=== PATIENT | female | born 1945 | race Caucasian/White ===

== ENCOUNTER 2016-07-09 11:57 | Inpatient (IN) | payer OTHER ==
[~2016-07-09] VITALS: Ht 157.5 cm; Wt 61.2 kg
[2016-07-09 13:15] LABS: UA SPECIFIC GRAVITY <=1.005 (1.005-1.035); microscopic required? YES; urine erythrocyte TRACE (NEGATIVE)
[2016-07-09 13:18] LABS: BASOPHIL % 0.7 % (0-2); PLATELET COUNT 387 x10^3mcL (130-400); RED CELL DISTRIBUTION WIDTH 13.6 % (11.5-14.5)
[2016-07-09 13:28] LABS: AMPHETAMINE QUAL UR NONE DETECTED (NEG <=1000)
[2016-07-09 13:34] LABS: ALKALINE PHOSPHATASE 84 U/L (46-116); ALT/SGPT 16 U/L (14-59); AST/SGOT 14 U/L (15-37); BILIRUBIN TOTAL 0.35 mg/dL (0.20-1.00); CALCIUM 9.3 mg/dL (8.5-10.1); CARBON DIOXIDE 29.1 mmol/L (21-32); CHLORIDE SERUM 91 mmol/L (98-107); CREATININE SERUM 1.5 mg/dL (0.6-1.0); GLUCOSE SERUM 105 mg/dL (74-106); POTASSIUM SERUM 4.8 mmol/L (3.5-5.1); SODIUM SERUM 125 mmol/L (136-145)
[2016-07-09 13:37] LABS: ALBUMIN 3.3 g/dL (3.4-5.0)
[2016-07-09 14:49] LABS: FREE T4 1.24 ng/dL (0.76-1.46); FREE THYROXINE INDEX 3.5 ug/dL (1.4-4.5); T3 TOTAL 1.18 ng/mL; T4(THYROXINE) 9.9 ug/dL (4.7-13.3)
[2016-07-09] MEDS ORDERED: SIMVASTATIN20 M1 PO (14:58)
[2016-07-09] MEDS ORDERED: ESCITALOPRAM10 M1 PO (14:58)
[2016-07-09] MEDS ORDERED: BUSPIRONE HCL5 MG PO (14:58)
[2016-07-09] MEDS ORDERED: CLONAZEPAM0.5 MG PO (14:58)
[2016-07-09] MEDS ORDERED: OLANZAPINE5 M2 PO (14:59)
[2016-07-09] MEDS ORDERED: BENAZEPRIL HYDR20 M1 PO (14:59)
[2016-07-09] MEDS ORDERED: CYMBALTA30 M1 PO (14:59)
[2016-07-09] MEDS ORDERED: HCTZ/TRIAMTEREN1 CA1 PO (14:59)
[2016-07-09] MEDS ORDERED: ASPIR 8181 MG PO (15:00)
[2016-07-09 15:23] VITALS: BP 136/56
[2016-07-09 15:25] LABS: CHOLESTEROL/HDL RATIO 1.8
[2016-07-09 16:25] VITALS: BP 136/56
[2016-07-09 19:02] LABS: CALCIUM 8.7 mg/dL (8.5-10.1); CHLORIDE SERUM 93 mmol/L (98-107); CREATININE SERUM 1.4 mg/dL (0.6-1.0); GLUCOSE SERUM 127 mg/dL (74-106); POTASSIUM SERUM 4.4 mmol/L (3.5-5.1); SODIUM SERUM 125 mmol/L (136-145)
[2016-07-09 19:22] VITALS: BP 140/75
[2016-07-09 23:27] VITALS: BP 99/45
[2016-07-10 03:20] VITALS: BP 88/56
[2016-07-10 07:29] LABS: BASOPHIL % 0.6 % (0-2); PLATELET COUNT 362 x10^3mcL (130-400); RED CELL DISTRIBUTION WIDTH 13.1 % (11.5-14.5)
[2016-07-10 07:45] VITALS: BP 130/70
[2016-07-10 07:59] LABS: CARBON DIOXIDE 26.7 mmol/L (21-32); CHLORIDE SERUM 98 mmol/L (98-107); CREATININE SERUM 1.2 mg/dL (0.6-1.0); GLUCOSE SERUM 79 mg/dL (74-106); MAGNESIUM 2.8 mg/dL (1.8-2.4); PHOSPHOROUS 3.9 mg/dL (2.5-4.9); POTASSIUM SERUM 4.6 mmol/L (3.5-5.1); SODIUM SERUM 134 mmol/L (136-145)
[2016-07-10 11:45] VITALS: BP 112/59
[2016-07-10 15:02] VITALS: BP 98/50
[2016-07-10 17:25] VITALS: BP 97/32
[2016-07-10 20:48] VITALS: BP 109/52
[2016-07-11 05:45] VITALS: BP 123/63
[2016-07-11 07:50] VITALS: BP 122/56
[2016-07-11 08:49] LABS: CALCIUM 8.8 mg/dL (8.5-10.1); CARBON DIOXIDE 25.1 mmol/L (21-32); CHLORIDE SERUM 100 mmol/L (98-107); CREATININE SERUM 1.1 mg/dL (0.6-1.0); GLUCOSE SERUM 86 mg/dL (74-106); POTASSIUM SERUM 4.8 mmol/L (3.5-5.1); SODIUM SERUM 132 mmol/L (136-145)
[2016-07-11] MEDS ORDERED: DULOXETINE HYDR60 MG PO (13:34)
[2016-07-11 14:34] VITALS: BP 122/56
[2016-07-11] MEDS ORDERED: VIS25 PO (17:32)
[2016-07-11] MEDS ORDERED: ZOF4 PO (17:32)
== END 2016-07-11 18:01 | disposition home or self-care (01) | DRG 640 ==
LOC: ED 11:57 → IC 14:04 → MU 14:04 → IC 15:05 → DU 07-10 16:48 → MU 07-11 11:54
PROVIDERS: Emergency Medicine; Family Medicine; ADMIT Family Medicine
DX: E87.1 Hypo-osmolality and hyponatremia (principal); N17.0 Acute kidney failure with tubular necrosis; I45.2 Bifascicular block; F33.2 Major depressive disorder, recurrent severe without psychotic features; E44.0 Moderate protein-calorie malnutrition; G47.00 Insomnia, unspecified; K44.9 Diaphragmatic hernia without obstruction or gangrene; E78.5 Hyperlipidemia, unspecified; Z68.24 Body mass index [BMI] 24.0-24.9, adult; Z79.82 Long term (current) use of aspirin; Z87.891 Personal history of nicotine dependence
CPT/HCPCS: 80307; 82962; 83880; 84439; G0480; J2405; J7030; J7620; J7626; Q0092; Q0177

== ENCOUNTER 2016-07-21 08:36 | Emergency (ER) | payer OTHER ==
[~2016-07-21] VITALS: Ht 157.5 cm; Wt 63.5 kg
[~2016-07-21 08:36] MED LIST: ASPIR 8181 MG PO; BENAZEPRIL HYDR20 M1 PO; BUSPIRONE HCL5 MG PO; CLONAZEPAM0.5 MG PO; CYMBALTA30 M1 PO; DULOXETINE HYDR60 MG PO; ESCITALOPRAM10 M1 PO; HCTZ/TRIAMTEREN1 CA1 PO; OLANZAPINE5 M2 PO; SIMVASTATIN20 M1 PO; VIS25 PO; ZOF4 PO
[2016-07-21 09:28] LABS: PLATELET COUNT 399 x10^3mcL (130-400); RED CELL DISTRIBUTION WIDTH 12.7 % (11.5-14.5)
[2016-07-21 09:38] VITALS: BP 118/53
[2016-07-21 09:53] LABS: CALCIUM 9.3 mg/dL (8.5-10.1); CARBON DIOXIDE 27.1 mmol/L (21-32); CHLORIDE SERUM 92 mmol/L (98-107); CREATININE SERUM 1.6 mg/dL (0.6-1.0); GLUCOSE SERUM 84 mg/dL (74-106); POTASSIUM SERUM 4.2 mmol/L (3.5-5.1); SODIUM SERUM 127 mmol/L (136-145)
[2016-07-21 09:58] LABS: ALKALINE PHOSPHATASE 85 U/L (46-116); ALT/SGPT 14 U/L (14-59); AST/SGOT 12 U/L (15-37); BILIRUBIN TOTAL 0.3 mg/dL (0.20-1.00); TOTAL PROTEIN, SERUM 7.2 g/dL (6.4-8.2)
[2016-07-21 09:59] LABS: ALBUMIN 3.3 g/dL (3.4-5.0)
== END 2016-07-21 11:00 | disposition home or self-care (01) ==
LOC: ED 08:36
PROVIDERS: Emergency Medicine
DX: F41.1 Generalized anxiety disorder (principal); I10 Essential (primary) hypertension; E78.5 Hyperlipidemia, unspecified; J45.909 Unspecified asthma, uncomplicated; Z88.2 Allergy status to sulfonamides; Z88.1 Allergy status to other antibiotic agents
CPT/HCPCS: J2060; Q0092

== ENCOUNTER 2016-07-21 11:52 | Emergency (ER) | payer OTHER ==
[~2016-07-21] VITALS: Ht 157.5 cm; Wt 65.3 kg
[2016-07-21 12:02] VITALS: BP 121/70
--- NOTE | 2016-07-21 17:55 | NUR ---
SOCIAL SERVICE NOTE- LATE ENTRY- FOLLOW-UP DONE WITH THIS PT AT THE REQUEST OF THE ED STAFF.PT IS A ELDERLY FEMALE WHO IS A/O BUT FORGETFUL. SHE HAS A HX OF MENTAL HEALTH ISSUES AND IS ON PSYCH MEDICATIONS, MANAGED BY DR. NICHOLE. PT CAME INTO THE ED 911 AT HER REQUEST BECAUSE SHE WAS HAVING ANXIETY. SHE WAS CHECKED TWICE BY THE ER- SEE ADDITIONAL ACCOUNT THIS DATE- WITH NO MEDICAL NECESSITY FOR ADMISSION. THE PT DID NOT WANT TO GO HOME AND THE STAFF ASKED FOR ASSISTANCE TO RESOLVE THE DISCHARGE CONCERN. I MET WITH THE PT WHO WAS COOPERATIVE BUT HAD A NUMBER OF THINGS THAT MADE HER ANXIOUS INCLUDING RETURNING HOME BECASUE SHE WOULD BE ALONE. HER SON WORKS UNTIL 1700 AND WE WERE UNALE TO REACH OUT TO HIM. SHE HAS A HOUSE RYAN TO SAFELY GET INTO HER HOME AND OTHER OPTIONS WERE EXPLORED INCLUDING GOING HOME BY [employer] LOOKING AT SUPPORTIVE RESOURCES SUCH SENIOR COMPAN[employer]. SHE EXPRESSED SOME INTEREST IN THE LATTER AND INFO RE THIS PROGRAM WILL BE PROVIDED TO HER. SHE WAS WILLING TO SIT AND WAIT UNTIL HER SON COULD PICK HER UP. I ARRANGED FOR HER TO HAVE LUNCH AND WAIT IN THE "QUIET ROOM NEXT TO THE DISCHARGE OFFICE. THE STAFF IN THIS OFFICE REGULARLY CHECKED ON THE PT DURING THE DAY TO ADDRESS ANY NEEDS/CONCERNS. I WAS ABLE TO REACH HER SON BY CALLING HIS CELL PHONE ([phone]) WHICH SHE DID NOT GIVE THE ED STAFF EARLIER. HE WAS ABLE TO TRANSPORT HER HOME AT APPROXIMATELY 17:40.
== END 2016-07-21 13:36 | disposition home or self-care (01) ==
LOC: ED 11:52
DX: R35.0 Frequency of micturition (principal); F41.1 Generalized anxiety disorder; E78.00 Pure hypercholesterolemia, unspecified; Z88.2 Allergy status to sulfonamides; Z88.1 Allergy status to other antibiotic agents

== ENCOUNTER 2016-07-23 11:06 | Inpatient (IN) | payer OTHER ==
[~2016-07-23] VITALS: Ht 162.6 cm; Wt 65.8 kg
[2016-07-23 12:22] LABS: BASOPHIL % 0.9 % (0-2); PLATELET COUNT 397 x10^3mcL (130-400); RED CELL DISTRIBUTION WIDTH 12.9 % (11.5-14.5)
[2016-07-23 12:29] LABS: microscopic required? NO
[2016-07-23 12:38] LABS: ALBUMIN 3.4 g/dL (3.4-5.0); ALKALINE PHOSPHATASE 85 U/L (46-116); ALT/SGPT 14 U/L (14-59); AST/SGOT 16 U/L (15-37); BILIRUBIN TOTAL 0.4 mg/dL (0.20-1.00); CALCIUM 8.9 mg/dL (8.5-10.1); CARBON DIOXIDE 28.6 mmol/L (21-32); CHLORIDE SERUM 88 mmol/L (98-107); CREATININE SERUM 1.6 mg/dL (0.6-1.0); GLUCOSE SERUM 91 mg/dL (74-106); MAGNESIUM 1.6 mg/dL (1.8-2.4); POTASSIUM SERUM 4.2 mmol/L (3.5-5.1); TOTAL PROTEIN, SERUM 7.2 g/dL (6.4-8.2)
[2016-07-23 12:46] LABS: UA SPECIFIC GRAVITY <=1.005 (1.005-1.035); urine erythrocyte NEGATIVE (NEGATIVE)
[2016-07-23 12:49] LABS: SODIUM SERUM 122 mmol/L (136-145)
[2016-07-23 13:51] LABS: AMPHETAMINE QUAL UR NONE DETECTED (NEG <=1000)
[2016-07-23 14:21] LABS: CHOLESTEROL/HDL RATIO 1.8
[2016-07-23 14:29] LABS: PHOSPHOROUS 3.7 mg/dL (2.5-4.9)
[2016-07-23 14:38] LABS: T3 TOTAL 0.95 ng/mL
[2016-07-23 14:40] LABS: FREE T4 1.45 ng/dL (0.76-1.46); FREE THYROXINE INDEX 3.4 ug/dL (1.4-4.5)
[2016-07-23 17:37] VITALS: BP 128/62
[2016-07-23 21:16] VITALS: BP 108/60
[2016-07-24] VITALS (7 sets, daily range): BP systolic 100–123; BP diastolic 50–54
[2016-07-24 07:18] LABS: BASOPHIL % 1.2 % (0-2); PLATELET COUNT 341 x10^3mcL (130-400)
[2016-07-24 07:35] LABS: CALCIUM 8.9 mg/dL (8.5-10.1); CARBON DIOXIDE 26.9 mmol/L (21-32); CHLORIDE SERUM 97 mmol/L (98-107); CREATININE SERUM 1.4 mg/dL (0.6-1.0); GLUCOSE SERUM 92 mg/dL (74-106); MAGNESIUM 2.4 mg/dL (1.8-2.4); PHOSPHOROUS 3.2 mg/dL (2.5-4.9); POTASSIUM SERUM 4.3 mmol/L (3.5-5.1); SODIUM SERUM 129 mmol/L (136-145)
[2016-07-24 09:42] LABS: OSMOLALITY SERUM 274 mOsm/kg (278-298)
[2016-07-24 12:47] LABS: IRON 38 ug/dL (50-170); TOTAL IRON BINDING CAPACITY 372 ug/dL (250-450)
[2016-07-25 05:29] VITALS: BP 106/55
[2016-07-25 06:43] LABS: PLATELET COUNT 331 x10^3mcL (130-400); RED CELL DISTRIBUTION WIDTH 13.3 % (11.5-14.5)
[2016-07-25 07:09] LABS: CALCIUM 8.7 mg/dL (8.5-10.1); CARBON DIOXIDE 24.5 mmol/L (21-32); CHLORIDE SERUM 100 mmol/L (98-107); CREATININE SERUM 1.2 mg/dL (0.6-1.0); GLUCOSE SERUM 102 mg/dL (74-106); MAGNESIUM 1.8 mg/dL (1.8-2.4); PHOSPHOROUS 3.4 mg/dL (2.5-4.9); POTASSIUM SERUM 4.1 mmol/L (3.5-5.1); SODIUM SERUM 134 mmol/L (136-145)
[2016-07-25 07:25] VITALS: BP 115/64
[2016-07-25 09:55] VITALS: BP 129/56
[2016-07-25 14:47] VITALS: BP 129/56
== END 2016-07-25 16:15 | disposition home or self-care (01) | DRG 640 ==
LOC: ED 11:06 → DU 12:57 → MU 12:57 → DU 12:57 → MU 07-25 10:53
PROVIDERS: Emergency Medicine; ADMIT Family Medicine
DX: E87.1 Hypo-osmolality and hyponatremia (principal); N17.0 Acute kidney failure with tubular necrosis; E44.1 Mild protein-calorie malnutrition; F33.2 Major depressive disorder, recurrent severe without psychotic features; R45.851 Suicidal ideations; E86.0 Dehydration; F41.1 Generalized anxiety disorder; E83.42 Hypomagnesemia; I10 Essential (primary) hypertension; D64.9 Anemia, unspecified; E78.5 Hyperlipidemia, unspecified; E05.90 Thyrotoxicosis, unspecified without thyrotoxic crisis or storm; Z68.24 Body mass index [BMI] 24.0-24.9, adult; Z79.82 Long term (current) use of aspirin
CPT/HCPCS: 84439; G0480; J3475; J7030; J7040; J7620; Q0162; Q0177

== ENCOUNTER 2016-07-27 08:37 | Emergency (ER) | payer OTHER ==
[~2016-07-27] VITALS: Ht 157.5 cm; Wt 65.3 kg
[2016-07-27 10:00] VITALS: BP 118/74
== END 2016-07-27 10:00 | disposition home or self-care (01) ==
LOC: ED 08:37
DX: R11.2 Nausea with vomiting, unspecified (principal); F41.9 Anxiety disorder, unspecified; F31.9 Bipolar disorder, unspecified; E78.00 Pure hypercholesterolemia, unspecified
CPT/HCPCS: Q0162

== ENCOUNTER 2016-07-29 09:51 | Emergency (ER) | payer OTHER ==
[~2016-07-29] VITALS: Ht 157.5 cm; Wt 65.3 kg
[2016-07-29 11:33] LABS: CALCIUM 9.1 mg/dL (8.5-10.1); CARBON DIOXIDE 30.6 mmol/L (21-32); CHLORIDE SERUM 93 mmol/L (98-107); CREATININE SERUM 1.7 mg/dL (0.6-1.0); GLUCOSE SERUM 92 mg/dL (74-106); POTASSIUM SERUM 4.2 mmol/L (3.5-5.1); SODIUM SERUM 126 mmol/L (136-145)
[2016-07-29 13:00] VITALS: BP 129/50
== END 2016-07-29 13:00 | disposition home or self-care (01) ==
LOC: ED 09:51
PROVIDERS: Emergency Medicine
DX: K59.00 Constipation, unspecified (principal); E87.1 Hypo-osmolality and hyponatremia; I12.9 Hypertensive chronic kidney disease with stage 1 through stage 4 chronic kidney disease, or unspecified chronic kidney disease; N18.3 Chronic kidney disease, stage 3 (moderate); E78.00 Pure hypercholesterolemia, unspecified; F31.9 Bipolar disorder, unspecified; Z87.891 Personal history of nicotine dependence; Z88.1 Allergy status to other antibiotic agents; Z88.2 Allergy status to sulfonamides; Z90.49 Acquired absence of other specified parts of digestive tract; Z90.710 Acquired absence of both cervix and uterus
CPT/HCPCS: 36415

== ENCOUNTER 2016-07-30 09:52 | Emergency (ER) | payer OTHER ==
[~2016-07-30] VITALS: Ht 157.5 cm; Wt 65.3 kg
[2016-07-30 11:20] VITALS: BP 113/66
== END 2016-07-30 11:20 | disposition home or self-care (01) ==
LOC: ED 09:52
DX: K59.00 Constipation, unspecified (principal); I10 Essential (primary) hypertension; Z88.2 Allergy status to sulfonamides; Z91.018 Allergy to other foods

== ENCOUNTER 2016-07-31 09:18 | Emergency (ER) | payer OTHER ==
[~2016-07-31] VITALS: Ht 157.5 cm; Wt 64.9 kg
[2016-07-31 10:41] LABS: RED CELL DISTRIBUTION WIDTH 13.8 % (11.5-14.5)
[2016-07-31 10:47] LABS: PLATELET COUNT 421 x10^3mcL (130-400)
[2016-07-31 10:49] LABS: CALCIUM 9.2 mg/dL (8.5-10.1); CARBON DIOXIDE 32.8 mmol/L (21-32); CHLORIDE SERUM 91 mmol/L (98-107); CREATININE SERUM 1.5 mg/dL (0.6-1.0); GLUCOSE SERUM 90 mg/dL (74-106); POTASSIUM SERUM 4.3 mmol/L (3.5-5.1); SODIUM SERUM 129 mmol/L (136-145)
[2016-07-31 10:53] LABS: ALKALINE PHOSPHATASE 82 U/L (46-116); ALT/SGPT 15 U/L (14-59); AMYLASE 65 U/L (25-115); AST/SGOT 15 U/L (15-37); BILIRUBIN TOTAL 0.3 mg/dL (0.20-1.00); LIPASE 124 IU/L (73-393); TOTAL PROTEIN, SERUM 7.1 g/dL (6.4-8.2)
[2016-07-31 11:01] LABS: microscopic required? YES; urine erythrocyte TRACE (NEGATIVE)
[2016-07-31 11:12] LABS: ALBUMIN 3.3 g/dL (3.4-5.0)
[2016-07-31 12:51] VITALS: BP 113/78
--- NOTE | 2016-07-31 17:27 | NUR ---
SOCIAL SERVICE NOTE: I WAS ASKED TO FOLLOW WITH THIS PT WHO HAS BEEN IN THE HOSPITAL MULTIPLE TIMES IN THE LAST 2 WEEKS. I MET WITH THE PT AT BEDSIDE AND WE DISCUSSED THE REASONS SHE KEEPS RETURNING. IT APPEARS SHE IS LONELY AND ANXIOUS BUT REJECTS MORE APPRORPIATE TOOLS- SUCH A SENIOR COUNTER CASER CARE FOLLOWING WITH HER PHYSICIAN AND PSYCHIATRIST, ETC. SHE IS AWARE THAT WE WILL NOT BE ADMITTING HER AND THAT SHE WILL NEED TO RETURN HOME BY CAB. SHE IS NOT HAPPY WITH THIS SITUATION BUT AGREED TO PAY FOR HER CAB. WILL FOLLOW NEEDED TO OFFER HER MORE SUPPORTIVE INTERVENTIONS.
== END 2016-07-31 13:10 | disposition home or self-care (01) ==
LOC: ED 09:18
PROVIDERS: Emergency Medicine
DX: R11.10 Vomiting, unspecified (principal); R19.7 Diarrhea, unspecified; D64.9 Anemia, unspecified; E87.1 Hypo-osmolality and hyponatremia; E86.0 Dehydration; E78.00 Pure hypercholesterolemia, unspecified; F32.9 Major depressive disorder, single episode, unspecified; I12.9 Hypertensive chronic kidney disease with stage 1 through stage 4 chronic kidney disease, or unspecified chronic kidney disease; N18.2 Chronic kidney disease, stage 2 (mild)
CPT/HCPCS: J7030; J7613; J7644

== ENCOUNTER 2016-08-02 10:00 | Emergency (ER) | payer OTHER ==
[~2016-08-02] VITALS: Ht 157.5 cm; Wt 65.3 kg
[2016-08-02 12:27] LABS: AMPHETAMINE QUAL UR NONE DETECTED (NEG <=1000)
[2016-08-02 20:39] VITALS: BP 94/61
== END 2016-08-02 20:39 ==
LOC: ED 10:00
PROVIDERS: Emergency Medicine
DX: R45.851 Suicidal ideations (principal); E78.00 Pure hypercholesterolemia, unspecified; F32.9 Major depressive disorder, single episode, unspecified; Z88.2 Allergy status to sulfonamides; Z88.1 Allergy status to other antibiotic agents

== ENCOUNTER 2016-08-20 12:29 | Emergency (ER) | payer OTHER ==
[2016-08-20 14:05] LABS: RED CELL DISTRIBUTION WIDTH 13.2 % (11.5-14.5)
[2016-08-20 14:11] LABS: PLATELET COUNT 431 x10^3mcL (130-400)
[2016-08-20 14:19] LABS: CALCIUM 9.3 mg/dL (8.5-10.1); CARBON DIOXIDE 32.5 mmol/L (21-32); CHLORIDE SERUM 96 mmol/L (98-107); CREATININE SERUM 1.6 mg/dL (0.6-1.0); GLUCOSE SERUM 93 mg/dL (74-106); POTASSIUM SERUM 3.7 mmol/L (3.5-5.1); SODIUM SERUM 135 mmol/L (136-145)
[2016-08-20 14:24] LABS: ALBUMIN 3.3 g/dL (3.4-5.0); ALKALINE PHOSPHATASE 67 U/L (46-116); ALT/SGPT 14 U/L (14-59); AST/SGOT 14 U/L (15-37); BILIRUBIN TOTAL 0.3 mg/dL (0.20-1.00); TOTAL PROTEIN, SERUM 6.8 g/dL (6.4-8.2)
[2016-08-20 15:46] VITALS: BP 120/65
== END 2016-08-20 15:46 | disposition home or self-care (01) ==
LOC: ED 12:29
PROVIDERS: Emergency Medicine
DX: D50.9 Iron deficiency anemia, unspecified (principal); I10 Essential (primary) hypertension; Z79.899 Other long term (current) drug therapy; Z88.2 Allergy status to sulfonamides; Z91.012 Allergy to eggs; Z91.018 Allergy to other foods
CPT/HCPCS: 36415; G0480

== ENCOUNTER 2016-08-21 11:04 | Emergency (ER) | payer OTHER ==
[~2016-08-21] VITALS: Ht 157.5 cm; Wt 63.5 kg
[2016-08-21 12:17] LABS: RED CELL DISTRIBUTION WIDTH 14.5 % (11.5-14.5)
[2016-08-21 12:20] LABS: CALCIUM 9.1 mg/dL (8.5-10.1); CARBON DIOXIDE 28.7 mmol/L (21-32); CHLORIDE SERUM 96 mmol/L (98-107); CREATININE SERUM 1.7 mg/dL (0.6-1.0); GLUCOSE SERUM 117 mg/dL (74-106); POTASSIUM SERUM 3.7 mmol/L (3.5-5.1); SODIUM SERUM 131 mmol/L (136-145)
[2016-08-21 12:25] LABS: ALBUMIN 3.4 g/dL (3.4-5.0); ALKALINE PHOSPHATASE 73 U/L (46-116); ALT/SGPT 21 U/L (14-59); AMYLASE 67 U/L (25-115); AST/SGOT 14 U/L (15-37); BILIRUBIN TOTAL 0.43 mg/dL (0.20-1.00); LIPASE 116 IU/L (73-393); TOTAL PROTEIN, SERUM 6.9 g/dL (6.4-8.2)
[2016-08-21 12:28] LABS: PLATELET COUNT 484 x10^3mcL (130-400)
[2016-08-21 12:29] LABS: BASOPHIL % 0 % (0-2)
[2016-08-21 16:14] VITALS: BP 127/69
== END 2016-08-21 16:14 | disposition home or self-care (01) ==
LOC: ED 11:04
PROVIDERS: Emergency Medicine
DX: R53.1 Weakness (principal); E86.0 Dehydration; D64.9 Anemia, unspecified
CPT/HCPCS: 83880; J7030

== ENCOUNTER 2016-09-18 08:52 | Emergency (ER) | payer OTHER ==
[~2016-09-18] VITALS: Ht 157.5 cm; Wt 68.0 kg
[2016-09-18 09:30] LABS: CALCIUM 8.8 mg/dL (8.5-10.1); CARBON DIOXIDE 27.4 mmol/L (21-32); CHLORIDE SERUM 103 mmol/L (98-107); CREATININE SERUM 1.2 mg/dL (0.6-1.0); GLUCOSE SERUM 128 mg/dL (74-106); POTASSIUM SERUM 3.4 mmol/L (3.5-5.1); SODIUM SERUM 138 mmol/L (136-145)
[2016-09-18 09:35] LABS: ALKALINE PHOSPHATASE 88 U/L (46-116); ALT/SGPT 10 U/L (14-59); AST/SGOT 13 U/L (15-37); BILIRUBIN TOTAL 0.3 mg/dL (0.20-1.00); CHOLESTEROL 135 mg/dL (<200); TOTAL PROTEIN, SERUM 6.5 g/dL (6.4-8.2)
[2016-09-18 09:36] LABS: ALBUMIN 2.9 g/dL (3.4-5.0)
[2016-09-18 09:50] LABS: BASOPHIL % 0.8 % (0-2); PLATELET COUNT 337 x10^3mcL (130-400)
[2016-09-18 09:55] LABS: AMPHETAMINE QUAL UR NONE DETECTED (NEG <=1000)
[2016-09-18 10:26] LABS: RED CELL DISTRIBUTION WIDTH 18.5 % (11.5-14.5)
[2016-09-18 14:17] VITALS: BP 131/85
== END 2016-09-18 14:14 ==
LOC: ED 08:52
PROVIDERS: Specialist
DX: R45.851 Suicidal ideations (principal); D50.0 Iron deficiency anemia secondary to blood loss (chronic); E78.00 Pure hypercholesterolemia, unspecified; I10 Essential (primary) hypertension; Z90.49 Acquired absence of other specified parts of digestive tract; Z90.710 Acquired absence of both cervix and uterus; Z88.2 Allergy status to sulfonamides; Z88.8 Allergy status to other drugs, medicaments and biological substances
CPT/HCPCS: 36415; 83880; G0480; Q0092

== ENCOUNTER 2016-10-09 09:51 | Inpatient (IN) | payer OTHER ==
[~2016-10-09] VITALS: Ht 157.5 cm; Wt 64.0 kg
[2016-10-09 11:46] LABS: BASOPHIL % 0.7 % (0-2); PLATELET COUNT 344 x10^3mcL (130-400)
[2016-10-09 11:47] LABS: RED CELL DISTRIBUTION WIDTH 18.8 % (11.5-14.5)
[2016-10-09 11:49] LABS: CARBON DIOXIDE 30.3 mmol/L (21-32); CHLORIDE SERUM 103 mmol/L (98-107); GLUCOSE SERUM 89 mg/dL (74-106); POTASSIUM SERUM 3.5 mmol/L (3.5-5.1); SODIUM SERUM 139 mmol/L (136-145)
[2016-10-09 11:54] LABS: ALKALINE PHOSPHATASE 71 U/L (46-116); ALT/SGPT 5 U/L (14-59); AST/SGOT 16 U/L (15-37); BILIRUBIN TOTAL 0.43 mg/dL (0.20-1.00); TOTAL PROTEIN, SERUM 6.5 g/dL (6.4-8.2)
[2016-10-09 11:56] LABS: ALBUMIN 2.9 g/dL (3.4-5.0)
[2016-10-09 12:46] LABS: AMPHETAMINE QUAL UR NONE DETECTED (NEG <=1000)
[2016-10-09 16:03] LABS: T3 TOTAL 1.05 ng/mL
[2016-10-09 16:09] LABS: MAGNESIUM 1.9 mg/dL (1.8-2.4); PHOSPHOROUS 3.7 mg/dL (2.5-4.9)
[2016-10-09 16:16] LABS: CHOLESTEROL/HDL RATIO 2.1
[2016-10-09 16:23] LABS: FREE T4 1.57 ng/dL (0.76-1.46); FREE THYROXINE INDEX 3.7 ug/dL (1.4-4.5); T4(THYROXINE) 9.4 ug/dL (4.7-13.3)
[2016-10-09 16:44] VITALS: BP 184/98
[2016-10-09 17:14] VITALS: BP 168/89
[2016-10-09] MEDS ORDERED: FERROUS SULFAT325 M2 PO (17:29)
[2016-10-09 18:26] LABS: microscopic required? NO
[2016-10-09 18:30] LABS: urine erythrocyte NEGATIVE (NEGATIVE)
[2016-10-09 18:44] VITALS: BP 153/64
[2016-10-09 19:10] VITALS: BP 134/57
[2016-10-09 23:25] VITALS: BP 159/76
[2016-10-10 03:19] VITALS: BP 117/56
[2016-10-10 05:17] LABS: BASOPHIL % 0.7 % (0-2); PLATELET COUNT 359 x10^3mcL (130-400); RED CELL DISTRIBUTION WIDTH 18.8 % (11.5-14.5)
[2016-10-10 05:24] LABS: CALCIUM 8.8 mg/dL (8.5-10.1); CARBON DIOXIDE 29.5 mmol/L (21-32); CHLORIDE SERUM 105 mmol/L (98-107); CREATININE SERUM 0.8 mg/dL (0.6-1.0); GLUCOSE SERUM 98 mg/dL (74-106); POTASSIUM SERUM 3.5 mmol/L (3.5-5.1); SODIUM SERUM 139 mmol/L (136-145)
[2016-10-10 07:10] VITALS: BP 163/85
[2016-10-10 07:34] VITALS: Ht 157.5 cm; Wt 64.0 kg
[2016-10-10 11:22] VITALS: BP 142/77
[2016-10-10 15:00] VITALS: BP 144/56
[2016-10-10 21:50] VITALS: BP 132/49
[2016-10-11 05:34] VITALS: BP 133/60
[2016-10-11 08:24] VITALS: BP 147/67
[2016-10-11 13:44] VITALS: BP 156/72
[2016-10-11 16:10] VITALS: BP 156/74
[2016-10-11 23:57] VITALS: BP 158/62
[2016-10-12 09:15] VITALS: BP 158/67
[2016-10-12 13:09] VITALS: BP 149/64
[2016-10-12 21:27] VITALS: BP 144/59
[2016-10-13 05:45] VITALS: BP 151/40
[2016-10-13 09:05] VITALS: BP 166/77
[2016-10-14 05:06] VITALS: BP 155/64
[2016-10-14 07:16] VITALS: BP 146/58
[2016-10-14 17:14] VITALS: BP 159/63
[2016-10-14 20:18] VITALS: BP 143/59
[2016-10-15 05:54] VITALS: BP 144/49
[2016-10-15] MEDS ORDERED: ZYP10 PO (17:22)
[2016-10-15] MEDS ORDERED: METOPROLOL TART25 M1 PO (17:32)
[2016-10-15 22:17] VITALS: BP 142/54
[2016-10-16 06:19] VITALS: BP 127/59
[2016-10-16 09:07] VITALS: BP 154/67
[2016-10-16 15:07] VITALS: BP 127/59
[2016-10-16 16:50] VITALS: BP 152/70
== END 2016-10-16 19:15 | disposition home or self-care (01) | DRG 885 ==
LOC: ED 09:51 → MU 13:44 → DU 13:44 → IC 13:44 → DU 13:44 → IC 13:44 → DU 14:46 → IC 15:47 → DU 10-10 14:58 → MU 10-13 08:48
PROVIDERS: Emergency Medicine; ADMIT Family Medicine
DX: F33.2 Major depressive disorder, recurrent severe without psychotic features (principal); E43 Unspecified severe protein-calorie malnutrition; R45.851 Suicidal ideations; F41.1 Generalized anxiety disorder; I16.0 Hypertensive urgency; J44.9 Chronic obstructive pulmonary disease, unspecified; E05.90 Thyrotoxicosis, unspecified without thyrotoxic crisis or storm; D64.9 Anemia, unspecified; Z68.25 Body mass index [BMI] 25.0-25.9, adult; Z79.82 Long term (current) use of aspirin
CPT/HCPCS: 83880; 84439; G0480; J0360; J2270; J7030; Q0092; Q0177

== ENCOUNTER 2016-10-22 08:42 | Emergency (ER) | payer OTHER ==
[~2016-10-22] VITALS: Ht 157.5 cm; Wt 65.3 kg
[~2016-10-22 08:42] MED LIST changes: +FERROUS SULFAT325 M2 PO; +METOPROLOL TART25 M1 PO; +ZYP10 PO
[2016-10-22 10:14] LABS: microscopic required? YES; urine erythrocyte TRACE (NEGATIVE)
[2016-10-22 10:47] VITALS: BP 128/75
== END 2016-10-22 12:05 | disposition home or self-care (01) ==
LOC: ED 08:42
PROVIDERS: Emergency Medicine
DX: K59.00 Constipation, unspecified (principal); F31.9 Bipolar disorder, unspecified; I10 Essential (primary) hypertension; E78.00 Pure hypercholesterolemia, unspecified; Z88.2 Allergy status to sulfonamides; Z88.1 Allergy status to other antibiotic agents
CPT/HCPCS: Q0162

== ENCOUNTER 2016-10-24 08:52 | Emergency (ER) | payer OTHER ==
[~2016-10-24] VITALS: Ht 157.5 cm; Wt 65.8 kg
[2016-10-24 10:05] LABS: AMPHETAMINE QUAL UR NONE DETECTED (NEG <=1000)
[2016-10-24 10:32] LABS: UA SPECIFIC GRAVITY <=1.005 (1.005-1.035)
[2016-10-24 10:33] LABS: microscopic required? YES; urine erythrocyte TRACE (NEGATIVE)
[2016-10-24 10:38] LABS: BASOPHIL % 0.6 % (0-2); PLATELET COUNT 328 x10^3mcL (130-400)
[2016-10-24 10:42] LABS: RED CELL DISTRIBUTION WIDTH 18.4 % (11.5-14.5)
[2016-10-24 10:52] LABS: CALCIUM 9.6 mg/dL (8.5-10.1); CARBON DIOXIDE 31.6 mmol/L (21-32); CHLORIDE SERUM 100 mmol/L (98-107); CREATININE SERUM 1.5 mg/dL (0.6-1.0); GLUCOSE SERUM 98 mg/dL (74-106); POTASSIUM SERUM 4.1 mmol/L (3.5-5.1); SODIUM SERUM 134 mmol/L (136-145)
[2016-10-24 10:56] LABS: ALKALINE PHOSPHATASE 89 U/L (46-116); ALT/SGPT 12 U/L (14-59); AST/SGOT 12 U/L (15-37); BILIRUBIN TOTAL 0.4 mg/dL (0.20-1.00); TOTAL PROTEIN, SERUM 7.2 g/dL (6.4-8.2)
[2016-10-24 10:57] LABS: ALBUMIN 3.3 g/dL (3.4-5.0)
[2016-10-24 17:40] VITALS: BP 144/76
== END 2016-10-24 17:50 ==
LOC: ED 08:52
PROVIDERS: Emergency Medicine
DX: F41.9 Anxiety disorder, unspecified (principal); F32.9 Major depressive disorder, single episode, unspecified; R45.851 Suicidal ideations; R10.13 Epigastric pain; I10 Essential (primary) hypertension; E78.5 Hyperlipidemia, unspecified; E87.1 Hypo-osmolality and hyponatremia; G56.00 Carpal tunnel syndrome, unspecified upper limb; Z79.899 Other long term (current) drug therapy; Z88.1 Allergy status to other antibiotic agents; Z88.2 Allergy status to sulfonamides; Z90.49 Acquired absence of other specified parts of digestive tract
CPT/HCPCS: 36415; G0480

== ENCOUNTER 2016-11-18 07:49 | Inpatient (IN) | payer OTHER ==
[~2016-11-18] VITALS: Ht 157.5 cm; Wt 83.9 kg
[2016-11-18 09:42] LABS: CALCIUM 8.9 mg/dL (8.5-10.1); CARBON DIOXIDE 31.8 mmol/L (21-32); CHLORIDE SERUM 94 mmol/L (98-107); CREATININE SERUM 1.2 mg/dL (0.6-1.0); GLUCOSE SERUM 100 mg/dL (74-106); POTASSIUM SERUM 4.6 mmol/L (3.5-5.1); SODIUM SERUM 129 mmol/L (136-145)
[2016-11-18 09:48] LABS: BASOPHIL % 0.6 % (0-2); PLATELET COUNT 261 x10^3mcL (130-400)
[2016-11-18 09:49] LABS: ALKALINE PHOSPHATASE 86 U/L (46-116); ALT/SGPT 13 U/L (14-59); AST/SGOT 17 U/L (15-37); BILIRUBIN TOTAL 0.31 mg/dL (0.20-1.00); RED CELL DISTRIBUTION WIDTH 17.1 % (11.5-14.5); TOTAL PROTEIN, SERUM 7.1 g/dL (6.4-8.2)
[2016-11-18 09:50] LABS: ALBUMIN 3.2 g/dL (3.4-5.0)
[2016-11-18 11:03] LABS: microscopic required? YES; urine erythrocyte TRACE (NEGATIVE)
[2016-11-18 11:08] VITALS: BP 94/41
[2016-11-18 11:13] LABS: AMPHETAMINE QUAL UR NONE DETECTED (NEG <=1000)
[2016-11-18 14:05] VITALS: BP 87/49
[2016-11-18 14:37] LABS: PHOSPHOROUS 3.6 mg/dL (2.5-4.9)
[2016-11-18 14:38] LABS: CHOLESTEROL/HDL RATIO 2.5
[2016-11-18 14:48] LABS: FREE T4 1.26 ng/dL (0.76-1.46); FREE THYROXINE INDEX 2.9 ug/dL (1.4-4.5); T4(THYROXINE) 8.4 ug/dL (4.7-13.3)
[2016-11-18 17:05] VITALS: BP 110/73; BP 93/47
[2016-11-18 21:00] VITALS: BP 104/52
[2016-11-19 05:42] VITALS: BP 105/44
[2016-11-19 06:25] VITALS: BP 117/51
[2016-11-19 10:03] VITALS: BP 114/53
[2016-11-19 10:28] LABS: BASOPHIL % 0.4 % (0-2); PLATELET COUNT 192 x10^3mcL (130-400)
[2016-11-19 10:40] LABS: CALCIUM 8.4 mg/dL (8.5-10.1); CARBON DIOXIDE 27.5 mmol/L (21-32); CHLORIDE SERUM 96 mmol/L (98-107); CREATININE SERUM 1.4 mg/dL (0.6-1.0); GLUCOSE SERUM 97 mg/dL (74-106); PHOSPHOROUS 3.1 mg/dL (2.5-4.9); POTASSIUM SERUM 3.8 mmol/L (3.5-5.1); SODIUM SERUM 129 mmol/L (136-145)
[2016-11-19 13:56] VITALS: BP 88/38
[2016-11-19 17:59] VITALS: BP 112/41; BP 149/47
[2016-11-19 21:16] VITALS: BP 119/58
[2016-11-20 06:08] VITALS: BP 108/48
[2016-11-20 06:37] LABS: CALCIUM 8.4 mg/dL (8.5-10.1); CARBON DIOXIDE 28.4 mmol/L (21-32); CHLORIDE SERUM 99 mmol/L (98-107); CREATININE SERUM 1.2 mg/dL (0.6-1.0); GLUCOSE SERUM 91 mg/dL (74-106); MAGNESIUM 1.8 mg/dL (1.8-2.4); PHOSPHOROUS 3.1 mg/dL (2.5-4.9); POTASSIUM SERUM 4.4 mmol/L (3.5-5.1); SODIUM SERUM 132 mmol/L (136-145)
[2016-11-20 06:46] LABS: BASOPHIL % 0.5 % (0-2); PLATELET COUNT 197 x10^3mcL (130-400)
[2016-11-20 07:10] LABS: RED CELL DISTRIBUTION WIDTH 16.9 % (11.5-14.5)
[2016-11-20 09:16] VITALS: BP 106/51; BP 150/86
[2016-11-20 11:21] VITALS: BP 107/45
[2016-11-20 17:31] VITALS: BP 132/57
[2016-11-20 20:35] VITALS: BP 97/49
[2016-11-21] VITALS (7 sets, daily range): BP systolic 98–137; BP diastolic 39–55
[2016-11-21 06:13] LABS: BASOPHIL % 0.2 % (0-2); PLATELET COUNT 184 x10^3mcL (130-400)
[2016-11-21 06:40] LABS: CALCIUM 8.1 mg/dL (8.5-10.1); CARBON DIOXIDE 26.6 mmol/L (21-32); CHLORIDE SERUM 98 mmol/L (98-107); CREATININE SERUM 1.1 mg/dL (0.6-1.0); GLUCOSE SERUM 115 mg/dL (74-106); MAGNESIUM 1.5 mg/dL (1.8-2.4); PHOSPHOROUS 2.7 mg/dL (2.5-4.9); POTASSIUM SERUM 4.4 mmol/L (3.5-5.1); SODIUM SERUM 129 mmol/L (136-145)
[2016-11-22] VITALS (9 sets, daily range): BP systolic 91–154; BP diastolic 40–74
[2016-11-22 06:50] LABS: CALCIUM 7.9 mg/dL (8.5-10.1); CARBON DIOXIDE 27.2 mmol/L (21-32); CHLORIDE SERUM 97 mmol/L (98-107); CREATININE SERUM 0.9 mg/dL (0.6-1.0); GLUCOSE SERUM 135 mg/dL (74-106); PHOSPHOROUS 2.8 mg/dL (2.5-4.9); SODIUM SERUM 130 mmol/L (136-145)
[2016-11-22 07:15] LABS: BASOPHIL % 0.3 % (0-2); PLATELET COUNT 186 x10^3mcL (130-400)
[2016-11-22 07:50] LABS: RED CELL DISTRIBUTION WIDTH 17.5 % (11.5-14.5)
[2016-11-22 08:44] LABS: ovalocyte/elliptocyte 1+; rbc morphology (normal/abnorm) ABNORMAL (NORMAL)
[2016-11-22 22:20] LABS: BASOPHIL % 0.2 % (0-2); PLATELET COUNT 202 x10^3mcL (130-400)
[2016-11-22 22:21] LABS: RED CELL DISTRIBUTION WIDTH 16.4 % (11.5-14.5)
[2016-11-23 05:18] VITALS: BP 104/48
[2016-11-23 06:01] LABS: BASOPHIL % 0.5 % (0-2); PLATELET COUNT 205 x10^3mcL (130-400)
[2016-11-23 06:18] LABS: CALCIUM 8.2 mg/dL (8.5-10.1); CARBON DIOXIDE 27.9 mmol/L (21-32); CHLORIDE SERUM 96 mmol/L (98-107); GLUCOSE SERUM 100 mg/dL (74-106); MAGNESIUM 1.8 mg/dL (1.8-2.4); PHOSPHOROUS 3.6 mg/dL (2.5-4.9); SODIUM SERUM 128 mmol/L (136-145)
[2016-11-23 06:22] LABS: RED CELL DISTRIBUTION WIDTH 16.4 % (11.5-14.5)
[2016-11-23 08:36] VITALS: BP 110/47
[2016-11-23 12:08] VITALS: BP 101/46
[2016-11-23 17:32] VITALS: BP 94/42
[2016-11-23 21:27] VITALS: BP 104/51
[2016-11-24] VITALS (9 sets, daily range): BP systolic 98–147; BP diastolic 42–91
[2016-11-24 06:09] LABS: CALCIUM 8.3 mg/dL (8.5-10.1); CARBON DIOXIDE 27.5 mmol/L (21-32); CHLORIDE SERUM 95 mmol/L (98-107); GLUCOSE SERUM 97 mg/dL (74-106); MAGNESIUM 1.8 mg/dL (1.8-2.4); PHOSPHOROUS 3.7 mg/dL (2.5-4.9); POTASSIUM SERUM 4.5 mmol/L (3.5-5.1); SODIUM SERUM 126 mmol/L (136-145)
[2016-11-24 08:27] LABS: BASOPHIL % 0.6 % (0-2); PLATELET COUNT 234 x10^3mcL (130-400)
[2016-11-24 08:32] LABS: RED CELL DISTRIBUTION WIDTH 16.7 % (11.5-14.5)
[2016-11-24 08:33] LABS: rbc morphology (normal/abnorm) NORMAL (NORMAL)
[2016-11-24 16:39] LABS: PLATELET COUNT 223 x10^3mcL (130-400)
[2016-11-24 16:43] LABS: CALCIUM 8.3 mg/dL (8.5-10.1); CARBON DIOXIDE 27.8 mmol/L (21-32); CHLORIDE SERUM 97 mmol/L (98-107); GLUCOSE SERUM 97 mg/dL (74-106); POTASSIUM SERUM 5.2 mmol/L (3.5-5.1); RED CELL DISTRIBUTION WIDTH 16.1 % (11.5-14.5); SODIUM SERUM 128 mmol/L (136-145)
[2016-11-24 17:00] LABS: BAND NEUTROPHIL 3 % (0-10); BASOPHIL 0 % (0-2); MONOCYTE 7 % (0-7); SEGMENTED NEUTROPHILS 71 % (37-75)
[2016-11-24 17:03] LABS: rbc morphology (normal/abnorm) ABNORMAL (NORMAL)
[2016-11-25 05:57] VITALS: BP 134/82
[2016-11-25 06:30] LABS: BASOPHIL % 0.3 % (0-2); PLATELET COUNT 259 x10^3mcL (130-400)
[2016-11-25 06:44] LABS: RED CELL DISTRIBUTION WIDTH 17.1 % (11.5-14.5)
[2016-11-25 07:06] LABS: ALKALINE PHOSPHATASE 66 U/L (46-116); ALT/SGPT 25 U/L (14-59); AST/SGOT 35 U/L (15-37); BILIRUBIN TOTAL 1.07 mg/dL (0.20-1.00); CALCIUM 8.5 mg/dL (8.5-10.1); CARBON DIOXIDE 26.9 mmol/L (21-32); CHLORIDE SERUM 97 mmol/L (98-107); GLUCOSE SERUM 88 mg/dL (74-106); POTASSIUM SERUM 4.3 mmol/L (3.5-5.1)
[2016-11-25 07:09] LABS: MAGNESIUM 1.7 mg/dL (1.8-2.4); PHOSPHOROUS 3.6 mg/dL (2.5-4.9)
[2016-11-25 07:14] LABS: ALBUMIN 1.8 g/dL (3.4-5.0); SODIUM SERUM 124 mmol/L (136-145); TOTAL PROTEIN, SERUM 5.1 g/dL (6.4-8.2)
[2016-11-25 08:25] VITALS: BP 126/47
[2016-11-25 09:00] VITALS: BP 126/47
[2016-11-25 14:14] VITALS: BP 125/38
[2016-11-25 18:08] VITALS: BP 124/58
[2016-11-25 20:43] VITALS: BP 117/59
[2016-11-26 05:28] VITALS: BP 110/43
[2016-11-26 06:34] LABS: BASOPHIL % 0.4 % (0-2); PLATELET COUNT 282 x10^3mcL (130-400)
[2016-11-26 06:36] LABS: CALCIUM 8.2 mg/dL (8.5-10.1); CHLORIDE SERUM 101 mmol/L (98-107); CREATININE SERUM 0.9 mg/dL (0.6-1.0); GLUCOSE SERUM 92 mg/dL (74-106); MAGNESIUM 1.6 mg/dL (1.8-2.4); PHOSPHOROUS 3.8 mg/dL (2.5-4.9); POTASSIUM SERUM 4.4 mmol/L (3.5-5.1); RED CELL DISTRIBUTION WIDTH 16.5 % (11.5-14.5); SODIUM SERUM 131 mmol/L (136-145)
[2016-11-26 08:55] VITALS: BP 128/56
[2016-11-26] MEDS ORDERED: BUPROPION HYDR100 M2 PO (09:46)
[2016-11-26 10:11] VITALS: BP 125/54
[2016-11-26 10:27] VITALS: BP 128/56
[2016-11-26] MEDS ORDERED: NORCO1 TA2 PO (12:27)
== END 2016-11-26 12:49 | DRG 480 ==
LOC: ED 07:49 → DU 09:49
PROVIDERS: Emergency Medicine; Neuromusculoskeletal Medicine, Sports Medicine; Student in an Organized Health Care Education/Training Program; ADMIT Family Medicine Sports Medicine
PROC: 0QS604Z Reposition Right Upper Femur with Internal Fixation Device, Open Approach (ICD-10-PCS; principal; 2016-11-20 12:00)
DX: S72.141A Displaced intertrochanteric fracture of right femur, initial encounter for closed fracture (principal); N17.0 Acute kidney failure with tubular necrosis; E44.0 Moderate protein-calorie malnutrition; E87.1 Hypo-osmolality and hyponatremia; E11.65 Type 2 diabetes mellitus with hyperglycemia; I10 Essential (primary) hypertension; K57.90 Diverticulosis of intestine, part unspecified, without perforation or abscess without bleeding; K44.9 Diaphragmatic hernia without obstruction or gangrene; D64.9 Anemia, unspecified; E78.5 Hyperlipidemia, unspecified; G47.00 Insomnia, unspecified; F41.8 Other specified anxiety disorders; F31.9 Bipolar disorder, unspecified; J45.909 Unspecified asthma, uncomplicated; Z68.26 Body mass index [BMI] 26.0-26.9, adult; W18.39XA Other fall on same level, initial encounter; Y92.018 Other place in single-family (private) house as the place of occurrence of the external cause
CPT/HCPCS: 82947; 82962; 83880; 84439; 94150; 97110-GP; 97116-GP; 97530-GP; C1713; J0610; J0690; J1644; J1885; J2060; J2175; J2250; J2270; J2405; J2704; J3010; J3475; J3490; J7030; J7040; J7042; J7050; J7120; P9016; Q0092; Q0163; Q0177

== ENCOUNTER 2016-12-11 11:52 | Emergency (ER) | payer OTHER ==
[~2016-12-11 11:52] MED LIST changes: +BUPROPION HYDR100 M2 PO; +NORCO1 TA2 PO
[2016-12-11 17:11] VITALS: BP 134/74
== END 2016-12-11 17:11 | disposition home or self-care (01) ==
LOC: ED 11:52
DX: S72.001D Fracture of unspecified part of neck of right femur, subsequent encounter for closed fracture with routine healing (principal); I10 Essential (primary) hypertension; E78.00 Pure hypercholesterolemia, unspecified; Z90.49 Acquired absence of other specified parts of digestive tract; Z90.710 Acquired absence of both cervix and uterus; X58.XXXD Exposure to other specified factors, subsequent encounter

== ENCOUNTER 2016-12-11 19:31 | Observation (INO) | payer OTHER ==
[~2016-12-11] VITALS: Ht 157.5 cm; Wt 64.6 kg
[2016-12-11 21:54] LABS: BASOPHIL % 0.2 % (0-2)
[2016-12-11 22:02] LABS: PLATELET COUNT 492 x10^3mcL (130-400)
[2016-12-11 22:03] LABS: CALCIUM 9.1 mg/dL (8.5-10.1); CARBON DIOXIDE 27.1 mmol/L (21-32); CHLORIDE SERUM 100 mmol/L (98-107); GLUCOSE SERUM 105 mg/dL (74-106); POTASSIUM SERUM 3.9 mmol/L (3.5-5.1); SODIUM SERUM 134 mmol/L (136-145)
[2016-12-11 22:12] LABS: ALKALINE PHOSPHATASE 155 U/L (46-116); ALT/SGPT 15 U/L (14-59); AST/SGOT 15 U/L (15-37); BILIRUBIN TOTAL 0.46 mg/dL (0.20-1.00); MAGNESIUM 1.7 mg/dL (1.8-2.4); TOTAL PROTEIN, SERUM 6.8 g/dL (6.4-8.2)
[2016-12-11 22:13] LABS: ALBUMIN 2.9 g/dL (3.4-5.0)
[2016-12-11 23:58] LABS: UA SPECIFIC GRAVITY <=1.005 (1.005-1.035); microscopic required? YES; urine erythrocyte 1+ (NEGATIVE)
[2016-12-12] VITALS (7 sets, daily range): BP systolic 101–142; BP diastolic 55–70; Ht 157.5 cm; Wt 64.6 kg
[2016-12-12 06:36] LABS: CALCIUM 8.8 mg/dL (8.5-10.1); CARBON DIOXIDE 24.8 mmol/L (21-32); CHLORIDE SERUM 103 mmol/L (98-107); CREATININE SERUM 0.9 mg/dL (0.6-1.0); GLUCOSE SERUM 105 mg/dL (74-106); MAGNESIUM 2.8 mg/dL (1.8-2.4); PHOSPHOROUS 3.5 mg/dL (2.5-4.9); POTASSIUM SERUM 3.8 mmol/L (3.5-5.1); SODIUM SERUM 135 mmol/L (136-145)
[2016-12-12 06:37] LABS: BASOPHIL % 3.2 % (0-2); PLATELET COUNT 499 x10^3mcL (130-400); RED CELL DISTRIBUTION WIDTH 15.3 % (11.5-14.5)
[2016-12-13] MEDS ORDERED: SIMETHICONE80 MG CH (05:22)
[2016-12-13] MEDS ORDERED: COL100 PO (05:23)
[2016-12-13] MEDS ORDERED: PYR100 PO (05:24)
[2016-12-13 05:33] VITALS: BP 145/56
[2016-12-13 06:11] LABS: BASOPHIL % 0.6 % (0-2)
[2016-12-13 06:20] LABS: PLATELET COUNT 420 x10^3mcL (130-400); RED CELL DISTRIBUTION WIDTH 16.9 % (11.5-14.5)
[2016-12-13 06:43] LABS: CALCIUM 8.6 mg/dL (8.5-10.1); CARBON DIOXIDE 25.7 mmol/L (21-32); CHLORIDE SERUM 104 mmol/L (98-107); CREATININE SERUM 0.8 mg/dL (0.6-1.0); GLUCOSE SERUM 88 mg/dL (74-106); MAGNESIUM 1.8 mg/dL (1.8-2.4); POTASSIUM SERUM 3.9 mmol/L (3.5-5.1); SODIUM SERUM 138 mmol/L (136-145)
[2016-12-13 09:17] VITALS: BP 140/57
[2016-12-13] MEDS ORDERED: CIPROFLOXACIN500 MG PO (09:52)
[2016-12-13] MEDS ORDERED: NORCO1 TA2 PO (09:59)
[2016-12-13 12:52] VITALS: BP 140/57
== END 2016-12-13 13:20 | DRG 689 ==
LOC: ED 19:31 → DU 12-12 00:07
PROVIDERS: Emergency Medicine; ADMIT Family Medicine
DX: N39.0 Urinary tract infection, site not specified (principal); G93.41 Metabolic encephalopathy; N17.0 Acute kidney failure with tubular necrosis; E87.1 Hypo-osmolality and hyponatremia; E44.0 Moderate protein-calorie malnutrition; D68.69 Other thrombophilia; F31.30 Bipolar disorder, current episode depressed, mild or moderate severity, unspecified; E11.59 Type 2 diabetes mellitus with other circulatory complications; E11.65 Type 2 diabetes mellitus with hyperglycemia; S72.001D Fracture of unspecified part of neck of right femur, subsequent encounter for closed fracture with routine healing; K57.90 Diverticulosis of intestine, part unspecified, without perforation or abscess without bleeding; I10 Essential (primary) hypertension; E83.42 Hypomagnesemia; E78.5 Hyperlipidemia, unspecified; D64.9 Anemia, unspecified; Z98.890 Other specified postprocedural states; Z79.82 Long term (current) use of aspirin; Z68.26 Body mass index [BMI] 26.0-26.9, adult; W01.0XXD Fall on same level from slipping, tripping and stumbling without subsequent striking against object, subsequent encounter
CPT/HCPCS: 83880; G0378; J0696; J2270; J3010; J3475; J7030; Q0092; Q0177